=== PATIENT | female | born 1965 | race Caucasian/White ===

== ENCOUNTER 2018-02-23 19:09 | Inpatient (IN) ==
[2018-02-23 20:27] LABS: Basophils % 0.3 % (0.0-0.8); Eosinophils # 0.2 10*3/uL (0.0-0.87); Eosinophils % 2.2 % (0.00-10.9); Hematocrit 37.5 VOL% (35.7-47.0); Hemoglobin 12.2 GM/DL (12.0-16.0); Immature Granulocytes % 0.9 %; Immature Granulocytes Absolute 0.09 #; Lymphocytes # 2.5 10*3/uL (1.4-4.0); Lymphocytes % 25.4 % (21.3-54.2); Mean Corpuscular HGB Conc 32.5 GM/DL (32-36); Mean Corpuscular Hemoglobin 29 PG (27-34); Mean Corpuscular Volume 87.6 FL (87-102); Mean Platelet Volume 11.5 FL (9.6-12.0); Monocytes # 0.6 10*3/uL (0.11-0.8); Monocytes % 5.8 % (1.7-12.7); Neutrophils # 6.4 10*3/uL (1.4-7.4); Neutrophils % 65.4 % (38.7-73.9); Platelet Count 193 T/CUMM (130-400); Red Blood Count 4.28 MC/CUMM (3.8-5.5); White Blood Count 9.8 T/CUMM (4-12)
[2018-02-23 20:42] LABS: Alanine Aminotransferase 77 U/L (13-56); Albumin 3.8 G/DL (3.4-5.0); Alkaline Phosphatase 40 U/L (45-117); Aspartate Amino Transferase 61 U/L (0-37); Bilirubin,Total < 0.39 MG/DL (0.2-1.0); Blood Urea Nitrogen 45 MG/DL (7-18); Calcium 10.3 MG/DL (8.5-10.1); Glucose 80 MG/DL (74-106); Osmolality,Calculated 289.4 MOS/KG (273-304); Potassium 3.6 MMOL/L (3.5-5.1); Sodium 140 MMOL/L (136-145)
[2018-02-23] MEDS ORDERED: hydrALAZINE 20 MG/1 ML VIAL IV STA ×2 (21:40→22:36)
[2018-02-23] MEDS ORDERED: hydrALAZINE 20 MG/1 ML VIAL ONE ×2 (22:05→22:37)
[2018-02-23] MEDS ORDERED: NITROGLYCERIN SL 0.4 MG TABLET SL PRN (22:53)
[2018-02-23] MEDS ORDERED: hydrALAZINE 20 MG/1 ML VIAL IV PRN (22:56)
[2018-02-23] MEDS ORDERED: MORPHINE 4 MG/1 ML VIAL IV PRN (22:57)
[2018-02-23] MEDS ORDERED: DEXTROSE 50% 25 GM/50 ML VIAL IV PRN (22:57)
[2018-02-23] MEDS ORDERED: GLUCAGON 1 MG VIAL IM PRN (22:57)
[2018-02-23] MEDS ORDERED: PROMETHAZINE INJ 12.5 MG in SODIUM CHLORIDE 0.9% 50 ML IV PRN (23:01)
[2018-02-24] MEDS: GABAPENTIN 400 MG CAPSULE PO SCH ×2 (02:04→09:07)
[2018-02-24] MEDS: SODIUM CHLORIDE 0.9% 1,000 ML IV SCH ×2 (02:04→16:51)
[2018-02-24 03:18] LABS: Basophils % 0.3 % (0.0-0.8); Eosinophils # 0.2 10*3/uL (0.0-0.87); Eosinophils % 1.7 % (0.00-10.9); Hematocrit 37.4 VOL% (35.7-47.0); Hemoglobin 11.8 GM/DL (12.0-16.0); Immature Granulocytes Absolute 0.09 #; Lymphocytes # 2.1 10*3/uL (1.4-4.0); Lymphocytes % 23.6 % (21.3-54.2); Mean Corpuscular HGB Conc 31.6 GM/DL (32-36); Mean Corpuscular Hemoglobin 28 PG (27-34); Mean Corpuscular Volume 87.8 FL (87-102); Mean Platelet Volume 11.4 FL (9.6-12.0); Monocytes # 0.4 10*3/uL (0.11-0.8); Monocytes % 4.7 % (1.7-12.7); Neutrophils # 6.1 10*3/uL (1.4-7.4); Neutrophils % 68.7 % (38.7-73.9); Platelet Count 188 T/CUMM (130-400); Red Blood Count 4.26 MC/CUMM (3.8-5.5); White Blood Count 8.9 T/CUMM (4-12)
[2018-02-24 03:54] LABS: Calcium 9.6 MG/DL (8.5-10.1); Osmolality,Calculated 294.1 MOS/KG (273-304); Risk Ratio 3.77; Thyroid Stimulating Hormone 0.061 uIU/ml (0.358-3.74); VLDL CHOLESTEROL 28.8 MG/DL
[2018-02-24] MEDS: INSULIN LISPRO 100 UNIT/ML SUBCUT SCH ×3 (08:34→16:54)
[2018-02-24] MEDS: INSULIN REGULAR 100 UNIT/ML SUBCUT SCH ×3 (08:35→16:54)
[2018-02-24] MEDS ORDERED: ALLOPURINOL 100 MG TABLET PO SCH (09:00)
[2018-02-24] MEDS ORDERED: ENOXAPARIN 30 MG/0.3 ML SYRINGE SUBCUT SCH (09:00)
[2018-02-24] MEDS ORDERED: GABAPENTIN 400 MG CAPSULE PO SCH (09:00)
[2018-02-24] MEDS ORDERED: METOPROLOL TARTRATE 50 MG TABLET PO SCH (09:00)
[2018-02-24] MEDS ORDERED: INSULIN NPH/REGULAR 70/30 100 UNIT/ML SUBCUT SCH (09:00)
[2018-02-24] MEDS ORDERED: ASPIRIN EC 81 MG TABLET PO SCH (09:00)
[2018-02-24] MEDS ORDERED: LOSARTAN 50 MG TABLET PO SCH (11:30)
[2018-02-24] MEDS ORDERED: GABAPENTIN 100 MG CAPSULE PO SCH (15:00)
[2018-02-24 16:53] VITALS: BP 181/86
[2018-02-24] MEDS ORDERED: LOVASTATIN 20 MG TABLET PO SCH (17:00)
[2018-02-24] MEDS ORDERED: CARVEDILOL 12.5 MG TABLET PO SCH (21:00)
== END 2018-02-24 17:30 | disposition home or self-care (01) | DRG 644 ==
LOC: N.ED 19:09 → N.EDINP 22:57 → N.TELEN 23:58
PROVIDERS: ADMIT Internal Medicine; ATTEND Internal Medicine